=== PATIENT | female | born 1945 | race Caucasian/White ===

== ENCOUNTER → 2018-11-22 14:26 | Outpatient (CLI) | payer MEDICARE, OTHER, SELFPAY ==
[2018-11-22 15:31] LABS: Alanine Aminotransferase 42 IU/L (9-52); Albumin 4.7 g/dL (3.5-5.0); Albumin Globulin Ratio 1.7 (1.0-2.8); Alkaline Phosphatase 60 U/L (38-126); Amylase 50 U/L (30-110); Aspartate Aminotransferase 24 IU/L (14-36); Bilirubin Total 0.5 mg/dL (0.2-1.3); Blood Urea Nitrogen 20 mg/dL (7-17); Calcium 9.6 mg/dL (8.4-10.2); Carbon Dioxide 24 mmol/L (22-32); Chloride 104 mmol/L (98-107); Cholesterol 235 mg/dL (140-199); Estimated Glomerular Filt Rate 54.3 mL/min (>60); Globulin 2.8 g/dL (1.7-4.1); Glucose 98 mg/dL (80-110); HDL Cholesterol 50 mg/dL (40-60); HEMOLYSIS < 15 (0-50); LDL Cholesterol Calculated 142 mg/dL (<100); Lipase 115 U/L (23-300); Potassium 4.2 mmol/L (3.4-5.1); Sodium 139 mmol/L (137-145); Total Protein 7.5 g/dL (6.3-8.2); Triglycerides 216 mg/dL (35-150)
[2018-11-22 15:37] LABS: Add Manual Diff / Slide Review NO; Basophils Absolute Auto 100 /uL (0-100); Basophils Percent Auto 0.7 % (0-2); Eosinophils Absolute Auto 200 /uL (0-450); Eosinophils Percent Auto 2.1 % (2-4); Hematocrit 41.2 % (36-46); Hemoglobin 14.5 g/dL (12.0-16.0); Lymphocytes Absolute Auto 1800 /uL (1100-4500); Lymphocytes Percent Auto 24.4 % (25-40); Mean Corpuscular HGB Conc 35.1 % (30-36); Mean Corpuscular Hemoglobin 32.1 PG (26-34); Mean Corpuscular Volume 91.4 fL (80-100); Monocytes Absolute Auto 600 /uL (0-900); Monocytes Percent Auto 8.3 % (3-14); Neutrophils Absolute Auto 4700 /uL (1500-7000); Neutrophils Percent Auto 64.5 % (50-75); Platelet Count 196 X10^3/uL (150-400); Red Cell Distribution Width 13.1 % (11.6-14.8); White Blood Cell Count 7.3 X10^3/uL (4.5-11.0)
== END ==
PROVIDERS: PCP Physician Assistant; Visit Provider Physician Assistant
DX: E78.5 Hyperlipidemia, unspecified (principal); R10.12 Left upper quadrant pain
CPT/HCPCS: 36415; 80053; 80061; 82150; 83690; 85025

== ENCOUNTER → 2018-11-24 10:25 | Outpatient (CLI) | payer MEDICARE, OTHER, SELFPAY ==
--- NOTE | 2018-11-24 | DI.CT.S_ITS ---
PROCEDURE: CT ABDOMEN W CON INDICATIONS: Left upper quadrant pain TECHNIQUE: After the administration of oral and intravenous contrast, 5 mm thick sections acquired from the diaphragms to the iliac crests. 5 mm thick coronal and sagittal reformats were acquired. For radiation dose reduction, the following was used: automated exposure control, adjustment of mA and/or kV according to patient size. COMPARISON: None. FINDINGS: Image quality: Excellent. Lung bases: Lung bases are clear. Heart size is normal. Solid organs: Liver is normal in size and enhancement. Incidental left lobe liver cyst. Gallbladder is surgically absent.. Biliary system is non dilated. Pancreas enhances normally. Spleen is normal in size and enhancement. No adrenal nodules. Kidneys are normal in size, without hydronephrosis. Peritoneum and bowel: Contrast enhanced bowel loops appear normal in caliber. There is diverticulosis involving the right colon and transverse colon. There is no evidence of diverticulitis. No free fluid or air. Nodes and vessels: No retroperitoneal or mesenteric adenopathy by size criteria. Aorta and inferior vena cava are normal in size. Atherosclerotic infrarenal aortic calcifications. There is normal variant anatomy in which the celiac and SMA arise off the aorta as a common trunk, which is widely patent. There is an independent origin of the left gastric artery just above the common origin of the celiac and SMA. Bones: No suspicious bony lesions. No vertebral body compression fractures. Miscellaneous: No ventral hernias. IMPRESSION: 1. There are no findings explaining the patient's left upper quadrant complaints. 2. Remote cholecystectomy. 3. Colonic diverticulosis. 4. Normal variant anatomy as described above. Dictated by: Jb Kelly M.D. on 11/24/2018 at 12:58 Approved by: Jb Kelly M.D. on 11/24/2018 at 13:03
== END ==
PROVIDERS: PCP Physician Assistant; Visit Provider Physician Assistant
DX: R10.12 Left upper quadrant pain (principal); K57.30 Diverticulosis of large intestine without perforation or abscess without bleeding; Z90.49 Acquired absence of other specified parts of digestive tract
CPT/HCPCS: 74160; Q9967

== ENCOUNTER 2019-05-17 06:32 | Emergency (ER) | payer MEDICARE, OTHER, SELFPAY ==
[2019-05-17 06:48] VITALS: BP 159/74; PULSE 62; RESP 18; TEMP 36.7; O2SAT 96
--- NOTE | 2019-05-17 07:13 | ED.EYEPROB ---
HPI - Eye Problem General Chief complaint: Eye Problems Stated complaint: right eye sore, congregation/head pain Time Seen by Provider: 05/17/19 06:33 Source: patient Mode of arrival: ambulatory Limitations: no limitations History of Present Illness HPI Narrative: Patient is 73-year-old female who presents with right eye discomfort right-sided headache. It has been ongoing for the last 4 days. She is very tender on her right congregation area is she says every time she touches it is an extreme pain. She does not typically get headaches. This is very out of the norm for her. At a seems to be getting worse. She is sensitive to light and noise. Her right eye feels like there is something in it and that swollen. She complains of pruritus. She denies any loss of vision. No weakness no numbness no tingling. chief complaint: eye pain Onset (ago): day(s) (4) Location: right eye Related Data Previous Rx's Medication Instructions Recorded polymyxin B sulf-trimethoprim 1 drop EYE-RIGHT Q4HRWA 7 Days #10 05/17/19 [Polytrim] ml Allergies Allergy/AdvReac Type Severity Reaction Status Date / Time Sulfa (Sulfonamide Allergy Verified 05/17/19 07:46 Antibiotics) Review of Systems Review of Systems ROS Unobtainable: All systems reviewed & are unremarkable except as noted in HPI and below Constitutional Denies chills, Denies fever(s), Reports headache(s), Denies lethargy and Denies weakness Eyes Denies blurry vision, Denies exophthalmos, Denies change in vision, Denies diplopia, Denies eye discharge, Denies dry eyes, Reports irritation, Reports itchy eyes, Reports eye pain, Denies seeing flashes and Reports photophobia ENT Ears, Nose, Mouth, and Throat: Denies change in voice, Reports headache(s), Denies neck pain and Denies sore throat Cardiovascular Denies chest pain, Denies irregular heart rhythm, Denies lightheadedness, Denies palpitations, Denies dyspnea, Denies dyspnea on exertion and Denies orthopnea Respiratory Denies cough, Denies dyspnea, Denies dyspnea on exertion and Denies wheezing Gastrointestinal Gastrointestinal: Denies abdominal pain, Denies change in bowel habits, Denies diarrhea, Denies nausea and Denies vomiting Genitourinary Denies hematuria, Denies flank pain, Denies urinary incontinence and Denies urinary urgency Musculoskeletal Denies neck pain Integumentary/Breasts Denies pruritus, Denies erythema, Denies rash and Denies wounds Neurologic Denies confusion, Reports headache(s) and Denies weakness Psychiatric Denies anxiety, Denies confusion, Denies depression, Denies homicidal ideation and Denies suicidal ideation Endocrine Denies palpitations Allergic/Immunologic Reports itchy eyes and Denies wheezing PFSH Social History Smoking Status: Former smoker Social History Smoking Status: Former smoker Exam Initial Vital Signs Initial Vital Signs: Vital Signs Temperature 98.1 F 05/17/19 06:48 Pulse Rate 62 05/17/19 06:48 Respiratory Rate 18 05/17/19 06:48 Blood Pressure 159/74 H 05/17/19 06:48 Pulse Oximetry 96 05/17/19 06:48 Const General: cooperative and well developed Nutritional Appearance: well nourished Orientation: alert, awake, oriented x3 and not confused HENMT Head: temporal artery tenderness (Right side) Eyes General: appearance normal, both eyes and all related structures Visual Reaves: normal visual reaves by confrontation Eyelids: eyelids normal (No stye present) Conjunctivae: conjunctivae normal Sclera: sclerae normal Cornea: corneas normal and fluorescein used (No dye uptake in right eye) Pupils: PERRL EOM: EOM intact bilaterally Direct ophthalmoscopy: normal light reflex Neck Neck: full ROM and no meningeal signs Resp Effort & Inspection: normal respiratory effort, able to speak in complete sentences, no respiratory distress and no use of accessory muscles Auscultation: clear to auscultation bilaterally, no rales, no rhonchi and no wheezes Cardio Rate: regular rate Rhythm: regular rhythm Heart Sounds: no click, no gallops, no murmurs and no rubs Pulses: normal peripheral pulses GI Inspection: normal to inspection Palpation: soft, No guarding and No tender Skin General: no rashes or lesions noted, No jaundice and No petechiae Neuro General: alert, awake and oriented x3 Cranial Nerves: CN's II-XI intact bilaterally Course Orders Ordered: ED Orders 05/17/19 07:28 CT head/brain wo con Stat 05/17/19 07:35 C-Reactive Protein Quant Stat Complete Blood Count AUTO DIFF Stat Comprehensive Metabolic Panel Stat Erythrocyte Sedimentation Rate Stat 05/17/19 09:46 CT head/brain wo con Stat Discontinued Medications Hydrocodone Bitart/Acetaminophen ([place] 5/325) 1 tab PO NOW ONE Stop: 05/17/19 12:23 Last Admin: 05/17/19 12:27 Dose: 1 tab Ketorolac Tromethamine (Toradol) 30 mg IV NOW ONE Stop: 05/17/19 07:23 Last Admin: 05/17/19 07:46 Dose: 30 mg Proparacaine HCl ([place] 0.5% Ophth Allison) 1 drops EYE-BOTH NOW ONE Stop: 05/17/19 08:34 Last Admin: 05/17/19 08:54 Dose: 1 drops Vital Signs - 8 hr 05/17/19 06:48 05/17/19 09:15 05/17/19 11:45 Temperature 98.1 F Pulse Rate 62 75 59 L Respiratory Rate 18 18 15 Blood Pressure 159/74 H Blood Pressure [Left Arm] 147/75 H 143/53 H Pulse Oximetry 96 98 100 MDM - Eye Problem Lab Data Attestation: I reviewed the patient's lab results. Result diagrams: 05/17/19 07:35 05/17/19 07:35 Lab Results 05/17/19 05/17/19 Range/Units 07:35 07:35 WBC 6.4 (4.5-11.0) X10^3/uL RBC 4.55 (4.0-5.2) X10^6/uL Hgb 14.3 (12.0-16.0) g/dL Hct 41.2 (36-46) % MCV 90.5 (80-100) fL MCH 31.4 (26-34) PG MCHC 34.7 (30-36) % RDW 12.9 (11.6-14.8) % Plt Count 169 (150-400) X10^3/uL Neut % (Auto) 80.2 H (50-75) % Lymph % (Auto) 11.1 L (25-40) % [place] % (Auto) 7.1 (3-14) % Eos % (Auto) 1.2 L (2-4) % Baso % (Auto) 0.4 (0-2) % Neut # (Auto) 5100 (4703-7840) /uL Lymph # (Auto) 700 L (0602-4788) /uL [place] # (Auto) 500 (0-900) /uL Eos # (Auto) 100 (0-450) /uL Baso # (Auto) 0 (0-100) /uL ESR 9 (0-20) MM/HR Sodium 140 (137-145) mmol/L Potassium 4.1 (3.4-5.1) mmol/L Chloride 103 (98-107) mmol/L Carbon Dioxide 26 (22-32) mmol/L BUN 17 (7-17) mg/dL Creatinine 0.90 (0.52-1.04) mg/dL Estimated GFR > 60.0 (>60) mL/min BUN/Creatinine Ratio 18.9 (6-22) Glucose 138 H (80-110) mg/dL Calcium 9.3 (8.4-10.2) mg/dL Total Bilirubin 0.8 (0.2-1.3) mg/dL AST 18 (14-36) IU/L ALT 25 (9-52) IU/L Alkaline Phosphatase 53 (38-126) U/L C-Reactive Protein < 0.5 (<1.0) mg/dL Total Protein 7.3 (6.3-8.2) g/dL Albumin 4.4 (3.5-5.0) g/dL Globulin 2.9 (1.7-4.1) g/dL Albumin/Globulin Ratio 1.5 (1.0-2.8) Imaging Data CT scan - head: Radiologist's impression: PROCEDURE: CT HEAD/BRAIN WO CON INDICATIONS: right sided headache out of proportion TECHNIQUE: Noncontrast 4.5 mm thick angled axial sections acquired from the foramen magnum to the vertex, with coronal and sagittal reformats. For radiation dose reduction, the following was used: automated exposure control, adjustment of mA and/or kV according to patient size. COMPARISON: None. FINDINGS: Image quality: Excellent. CSF spaces: Basal cisterns are patent. No extra-axial fluid collections. The ventricles are symmetric in size and shape. Brain: No intracranial bleeds or masses. There is cerebral volume loss for age, with resultant ventricular and sulcal prominence. There are periventricular and deep white matter chronic small vessel ischemic changes. There is intracranial internal carotid artery atherosclerosis. Skull and face: Calvarium and visualized facial bones appear intact, without suspicious lesions. Sinuses: Visualized sinuses and mastoids are clear. IMPRESSION: Punctate right frontal hyperdense focus, statistically representing small calcification. However technically inadequate since no prior comparison studies, cannot entirely exclude petechial hemorrhage. Depending on level of clinical suspicion, repeat noncontrast CT could be performed in 6 hours to document stability. Otherwise, no acute intracranial process. Dictated by: Juan Cueva M.D. on 05/17/2019 at 8:[address] 2: Radiologist's impression: PROCEDURE: CT HEAD/BRAIN WO CON INDICATIONS: ? bleed vs calcification TECHNIQUE: Noncontrast 4.5 mm thick angled axial sections acquired from the foramen magnum to the vertex, with coronal and sagittal reformats. For radiation dose reduction, the following was used: automated exposure control, adjustment of mA and/or kV according to patient size. COMPARISON: [facility], CT, CT HEAD/BRAIN WO CON, 05/17/2019, 7:24. FINDINGS: Image quality: Excellent. CSF spaces: Basal cisterns are patent. No extra-axial fluid collections. The ventricles are symmetric in size and shape. Brain: No intracranial bleeds or masses. There is cerebral volume loss for age, with resultant ventricular and sulcal prominence. There are periventricular and deep white matter chronic small vessel ischemic changes. Punctate anterior right frontal sulcal calcification is stable compared to prior examination. There is intracranial internal carotid artery atherosclerosis. Skull and face: Calvarium and visualized facial bones appear intact, without suspicious lesions. Sinuses: Visualized sinuses and mastoids are clear. IMPRESSION: No acute intracranial disease process. Dictated by: Indu Luis MD, PhD on 05/17/2019 at 11:47 MDM Narrative Medical decision making narrative: Patient's inflammatory markers for ESR and CRP are negative. At this time I do not think temporal arteritis is present. Head CT does show likely calcification however questionable intracranial hemorrhage. Patient's pain is significantly improved after Toradol. Questionable bleed versus calcification on head CT. Based on patient's abnormal headache in severe pain doc with patient and about repeating head CT. They agree to wait. Head CT is negative. She continues to have some of pain. She is given 1 [place] to help with the pain she does not want any addictive medicine to take home. The recommend Tylenol and ibuprofen as needed Discharge Plan Departure Patient Disposition: Home Clinical Impression: Headache Qualifiers: Headache type: unspecified Headache chronicity pattern: acute headache Intractability: not intractable Qualified Code(s): R51 - Headache Conjunctivitis Qualifiers: Conjunctivitis type: acute Acute conjunctivitis type: unspecified Laterality: right Qualified Code(s): H10.31 - Unspecified acute conjunctivitis, right eye Instructions: Conjunctivitis, DI for Headache Activity Restrictions/Additional Instructions: *You have been diagnosed with headache, conjunctivae *What to do: CT scans today are reassuring no sign of bleeding. *Continue to take medications as directed Poly trim eye drops in right eye every 4 hours while awake. Tylenol 650 mg every 4-6 hours if needed for mild pain Ibuprofen 600 mg every 6-8 hours if needed for mild pain *Follow up with your primary care provider in 2-3 days *Return to ER if you should have visual loss, weakness, or any new, worsening or concerning symptoms Prescriptions: New polymyxin B sulf-trimethoprim [Polytrim] 10,000 unit- 1 mg/mL drops 1 drop EYE-RIGHT Q4HRWA 7 Days Qty: 10 RF: 0 Referrals: Lorie Sanches PA-C [Primary Care Provider] -
--- NOTE | 2019-05-17 07:28 | DI.CT.S_ITS ---
PROCEDURE: CT HEAD/BRAIN WO CON INDICATIONS: right sided headache out of proportion TECHNIQUE: Noncontrast 4.5 mm thick angled axial sections acquired from the foramen magnum to the vertex, with coronal and sagittal reformats. For radiation dose reduction, the following was used: automated exposure control, adjustment of mA and/or kV according to patient size. COMPARISON: None. FINDINGS: Image quality: Excellent. CSF spaces: Basal cisterns are patent. No extra-axial fluid collections. The ventricles are symmetric in size and shape. Brain: No intracranial bleeds or masses. There is cerebral volume loss for age, with resultant ventricular and sulcal prominence. There are periventricular and deep white matter chronic small vessel ischemic changes. There is intracranial internal carotid artery atherosclerosis. Skull and face: Calvarium and visualized facial bones appear intact, without suspicious lesions. Sinuses: Visualized sinuses and mastoids are clear. IMPRESSION: Punctate right frontal hyperdense focus, statistically representing small calcification. However technically inadequate since no prior comparison studies, cannot entirely exclude petechial hemorrhage. Depending on level of clinical suspicion, repeat noncontrast CT could be performed in 6 hours to document stability. Otherwise, no acute intracranial process. Dictated by: Juan Cueva M.D. on 05/17/2019 at 8:33 Approved by: Juan Cueva M.D. on 05/17/2019 at 8:38
[2019-05-17] MEDS: KETOROLAC 60 MG/2 ML VIAL 30 MG IV (07:46)
[2019-05-17 07:48] LABS: Add Manual Diff / Slide Review NO; Basophils Absolute Auto 0 /uL (0-100); Basophils Percent Auto 0.4 % (0-2); Eosinophils Absolute Auto 100 /uL (0-450); Eosinophils Percent Auto 1.2 % (2-4); Hematocrit 41.2 % (36-46); Hemoglobin 14.3 g/dL (12.0-16.0); Lymphocytes Absolute Auto 700 /uL (1100-4500); Lymphocytes Percent Auto 11.1 % (25-40); Mean Corpuscular HGB Conc 34.7 % (30-36); Mean Corpuscular Hemoglobin 31.4 PG (26-34); Mean Corpuscular Volume 90.5 fL (80-100); Monocytes Absolute Auto 500 /uL (0-900); Monocytes Percent Auto 7.1 % (3-14); Neutrophils Absolute Auto 5100 /uL (1500-7000); Neutrophils Percent Auto 80.2 % (50-75); Platelet Count 169 X10^3/uL (150-400); Red Blood Cell Count 4.55 X10^6/uL (4.0-5.2); Red Cell Distribution Width 12.9 % (11.6-14.8); White Blood Cell Count 6.4 X10^3/uL (4.5-11.0)
[2019-05-17 08:00] LABS: Alanine Aminotransferase 25 IU/L (9-52); Albumin 4.4 g/dL (3.5-5.0); Albumin Globulin Ratio 1.5 (1.0-2.8); Alkaline Phosphatase 53 U/L (38-126); Aspartate Aminotransferase 18 IU/L (14-36); BUN Creatinine Ratio 18.9 (6-22); Bilirubin Total 0.8 mg/dL (0.2-1.3); Blood Urea Nitrogen 17 mg/dL (7-17); C-Reactive Protein Quant < 0.5 mg/dL (<1.0); Calcium 9.3 mg/dL (8.4-10.2); Carbon Dioxide 26 mmol/L (22-32); Chloride 103 mmol/L (98-107); Estimated Glomerular Filt Rate > 60.0 mL/min (>60); Globulin 2.9 g/dL (1.7-4.1); Glucose 138 mg/dL (80-110); HEMOLYSIS < 15 (0-50); Potassium 4.1 mmol/L (3.4-5.1); Sodium 140 mmol/L (137-145); Total Protein 7.3 g/dL (6.3-8.2)
[2019-05-17 08:07] LABS: Erythrocyte Sedimentation Rate 9 MM/HR (0-20)
[2019-05-17] MEDS: PROPARACAINE 0.5% OPHTH SOL 1 DROPS EYE-BOTH (08:54)
[2019-05-17 09:15] VITALS: BP 147/75; PULSE 75; RESP 18; O2SAT 98
--- NOTE | 2019-05-17 09:46 | DI.CT.S_ITS ---
PROCEDURE: CT HEAD/BRAIN WO CON INDICATIONS: ? bleed vs calcification TECHNIQUE: Noncontrast 4.5 mm thick angled axial sections acquired from the foramen magnum to the vertex, with coronal and sagittal reformats. For radiation dose reduction, the following was used: automated exposure control, adjustment of mA and/or kV according to patient size. COMPARISON: [facility], CT, CT HEAD/BRAIN WO CON, 05/17/2019, 7:24. FINDINGS: Image quality: Excellent. CSF spaces: Basal cisterns are patent. No extra-axial fluid collections. The ventricles are symmetric in size and shape. Brain: No intracranial bleeds or masses. There is cerebral volume loss for age, with resultant ventricular and sulcal prominence. There are periventricular and deep white matter chronic small vessel ischemic changes. Punctate anterior right frontal sulcal calcification is stable compared to prior examination. There is intracranial internal carotid artery atherosclerosis. Skull and face: Calvarium and visualized facial bones appear intact, without suspicious lesions. Sinuses: Visualized sinuses and mastoids are clear. IMPRESSION: No acute intracranial disease process. Dictated by: Indu Luis MD, PhD on 05/17/2019 at 11:47 Approved by: Indu Luis MD, PhD on 05/17/2019 at 11:49
[2019-05-17 11:45] VITALS: BP 143/53; PULSE 59; RESP 15; O2SAT 100
[2019-05-17] MEDS: HYDROCODONE/ACET 5/325 TABLET 1 TAB PO (12:27)
[2019-05-17 13:24] VITALS: BP 140/78; PULSE 70; RESP 18; O2SAT 98
== END 2019-05-17 13:25 | disposition home or self-care (01) ==
PROVIDERS: Emergency Provider Emergency Medicine; PCP Physician Assistant
DX: R51 Headache (principal); H10.31 Unspecified acute conjunctivitis, right eye
CPT/HCPCS: 36591; 70450; 80053; 85025; 85651; 86140; 96374; 99283; 99284; J1885

== ENCOUNTER 2019-05-19 07:21 | Emergency (ER) | payer MEDICARE, OTHER, SELFPAY ==
--- NOTE | 2019-05-19 07:24 | ED.HA ---
HPI - Headache General Chief Complaint: Headache Stated Complaint: extreme headache right side Time Seen by Provider: 05/19/19 07:35 Source: patient and old records reviewed Mode of arrival: ambulatory Limitations: no limitations History of Present Illness HPI Narrative: This is a 73-year-old female comes in with complaint of headache on the right side as well as a little bit of swelling of her right eyelid and pain in the eye. Patient states it started Wednesday 5 days ago. She was seen here on the had head CT as well as lab work including ESR and CRP which were negative. There is a question of a punctate density on the initial CT so it was repeated with no change noted on the . Patient has been trying ibuprofen and Tylenol as well as polymyxin trimethoprim drops without any improvement. She states that the headache is worse kind of over the buddhism, a radiates to the back of the scalp as well as starting to radiate down the side of the face and towards the mandible. Patient states that her eyelid has been a little bit swollen slightly reddish but not really significantly so and has not seeming to progress since it initially started. She also has noted that her eye seems a little bit more injected. She denies any change of vision. She denies any upper respiratory symptoms, no discharge or crusting. She has not noticed any rash or skin changes on her scalp or face. Patient has not had increasing pain with movement of her eye. She denies any chest pain, shortness of breath, no nausea or vomiting or other GI or urinary symptoms. She takes propranolol for essential tremor. She used to wear contacts but has not worn them for about a year and a half adjust uses glasses. She has not had any cataracts or interventions on her eye. Related Data Home Medications Medication Instructions Recorded Confirmed propranolol 20 mg PO BID 05/19/19 05/19/19 Previous Rx's Medication Instructions Recorded polymyxin B sulf-trimethoprim 1 drop EYE-RIGHT Q4HRWA 7 Days #10 05/17/19 [Polytrim] ml hydrocodone-acetaminophen [[place]] 1 tab PO Q6H PRN #10 tab 05/19/19 valacyclovir 1,000 mg PO TID 7 Days #21 tab 05/19/19 Allergies Allergy/AdvReac Type Severity Reaction Status Date / Time Sulfa (Sulfonamide Allergy Verified 05/19/19 08:03 Antibiotics) Review of Systems Review of Systems ROS Unobtainable: All systems reviewed & are unremarkable except as noted in HPI and below Constitutional Denies chills, Denies fever(s), Denies lethargy and Denies weakness Eyes Denies blurry vision, Denies change in vision, Denies diplopia, Reports irritation, Reports eye pain, Reports requires corrective lenses (uses glasses only), Reports photophobia and Reports other (redness, mild swelling eye lids on right) ENT Ears, Nose, Mouth, and Throat: Reports as per HPI and Denies nasal congestion Cardiovascular Denies chest pain and Denies dyspnea Respiratory Denies dyspnea Gastrointestinal Gastrointestinal: Denies abdominal pain, Denies change in bowel habits, Denies diarrhea, Denies nausea and Denies vomiting Genitourinary Denies urinary frequency, Denies dysuria and Denies urinary urgency Integumentary/Breasts Reports rash (ankle) Neurologic Denies weakness [facility] Medical History (Updated 05/19/19 @ 09:55 by Rosana Segura DO) Essential tremor (Chronic) Surgical History (Updated 05/19/19 @ 08:13 by Rosana Segura DO) Hx of cholecystectomy (Chronic) S/P appendectomy (Chronic) Social History (Updated 05/19/19 @ 08:14 by Rosana Segura DO) Smoking Status: Former smoker alcohol intake: current substance use type: does not use Social History (Updated 05/19/19 @ 08:14 by Rosana Segura DO) Smoking Status: Former smoker alcohol intake: current substance use type: does not use Exam Narrative Exam Narrative: GEN: well nourished, well appearing female, alert and oriented x 3, patient appears to be in mild distress. HEENT: Atraumatic, pupils are equal round reactive to light, extraocular movements are intact, nares are clear, TMs are clear with no fluid, there is no conjunctival pallor. Throat is clear without any exudates, erythema, tonsillar enlargement or uvular deviation Visual acuity: right [20/30], left [20/25] with correction (glasses). IOP: Right 21 mm Hg, Left 21 mm Hg General: no globe trauma Eyelids: normal inspection on left, right lid is slightly swollen with very mild erythema, patient does have a little swelling over the edge of the upper eyelid and extending periorbitally, No erthema appreciated other than along the lid margins, eyelids everted for exam on right. Conjunctiva/Sclera: normal inspection on left, slightly injected on right Corneas: normal inspection, examined with fluroscein on right, patient has small punctate uptake on the right sclera, cornea is spared except for the 11 o'clock position has some punctate spots 3-4 on the edge of the cornea, no dendritic lesions noted. EOM: intact, no palsy/entrapment Pupils: PERRL, normal accomadation, pupil normal Anterior Chambers: normal inspection, no hypema Posterior: normal fundoscopic b/l although difficult evaluate pupils are constricted. HEART: Regular rate and rhythm without murmur, clicks, rubs. No carotid bruits, pulses are equal in upper and lower extremities LUNGS:Lungs clear to auscultation, no wheezes, rales, crackles, chest moves symmetrically ABD:bowel sounds normal, soft, non-tender, no guarding, rebound, rigidity, no masses noted, no hepatosplenomegaly MSCL: Full range of motion, normal gait NEURO:CN 2-12 intact, sensation normal Initial Vital Signs Initial Vital Signs: Vital Signs Temperature 98.1 F 05/19/19 07:30 Pulse Rate 64 05/19/19 07:30 Respiratory Rate 20 05/19/19 07:30 Blood Pressure 146/71 H 05/19/19 07:30 Pulse Oximetry 98 05/19/19 07:30 Course Orders Ordered: Discontinued Medications Hydrocodone Bitart/Acetaminophen ([place] 5/325) 1 tab PO NOW ONE Stop: 05/19/19 10:29 Last Admin: 05/19/19 10:34 Dose: 1 tab Ketorolac Tromethamine (Toradol) 15 mg IV NOW ONE Stop: 05/19/19 08:10 Last Admin: 05/19/19 08:16 Dose: 15 mg Proparacaine HCl (Parcaine 0.5% Ophth Allison) 1 drops EYE-RIGHT NOW ONE Stop: 05/19/19 07:53 Last Admin: 05/19/19 07:56 Dose: 1 drops Vital Signs - 8 hr 05/19/19 10:50 05/19/19 11:00 Pulse Rate 48 L 54 L Respiratory Rate 16 16 Blood Pressure 139/77 Blood Pressure [Left Arm] 146/59 H Pulse Oximetry 98 97 MDM - Headache Lab Data Attestation: I reviewed the patient's lab results. Result diagrams: 05/19/19 07:25 05/19/19 07:25 Lab Results 05/19/19 05/19/19 Range/Units 07:25 07:25 WBC 4.8 (4.5-11.0) X10^3/uL RBC 4.38 (4.0-5.2) X10^6/uL Hgb 14.1 (12.0-16.0) g/dL Hct 39.5 (36-46) % MCV 90.2 (80-100) fL MCH 32.1 (26-34) PG MCHC 35.6 (30-36) % RDW 13.0 (11.6-14.8) % Plt Count 133 L (150-400) X10^3/uL Neut % (Auto) 76.9 H (50-75) % Lymph % (Auto) 10.3 L (25-40) % [place] % (Auto) 10.9 (3-14) % Eos % (Auto) 1.5 L (2-4) % Baso % (Auto) 0.4 (0-2) % Neut # (Auto) 3700 (7742-8095) /uL Lymph # (Auto) 500 L (3407-7876) /uL [place] # (Auto) 500 (0-900) /uL Eos # (Auto) 100 (0-450) /uL Baso # (Auto) 0 (0-100) /uL ESR 14 (0-20) MM/HR Sodium 138 (137-145) mmol/L Potassium 3.9 (3.4-5.1) mmol/L Chloride 104 (98-107) mmol/L Carbon Dioxide 23 (22-32) mmol/L BUN 14 (7-17) mg/dL Creatinine 1.00 (0.52-1.04) mg/dL Estimated GFR 54.3 L (>60) mL/min BUN/Creatinine Ratio 14.0 (6-22) Glucose 148 H (80-110) mg/dL Calcium 9.6 (8.4-10.2) mg/dL C-Reactive Protein 0.6 (<1.0) mg/dL Imaging Data FAcial bones CT: Radiologist's impression: [address] [address] [address] Scan Report Signed Patient: Rafaela Power JMR#: [id number] : 5Acct:[id number] Age/Sex: 73 / FDate of Service: 05/19/19 Loc: ED Accession Number: [id number] Procedure: CT facial bones wo con Ordering Provider: Rosana Segura D.O. PROCEDURE: CT FACIAL BONES WO CON INDICATIONS: pain scalp, temporal, swelling RIGHT eyelid TECHNIQUE: Noncontrast 2.5 mm thick axial images acquired from the mandible through the frontal sinuses, with coronal and sagittal reformatting. For radiation dose reduction, the following was used: automated exposure control, adjustment of mA and/or kV according to patient size. COMPARISON: None. FINDINGS: Image quality: Excellent. Bones and teeth: Orbital mao are intact. Sinus mao show no fracture or deformity. Nasal bones and septum are intact. Visualized portions of the mandible demonstrate no fractures or subluxation. Zygomatic arches are intact. Pterygoid plates are intact. Visualized portions of the skull base and auditory canals are intact. Sinuses: Paranasal sinuses are aerated, without fluid levels, mucosal thickening, or mucoceles. Mastoid air cells are aerated. Soft tissues: Mild right pre-septal, periorbital facial soft tissue swelling. No enlarged lymph nodes. No soft tissue lacerations or debris. Vascular: Visualized vascular structures appear normal in the absence of contrast. Bony vascular foramina and canals are intact. IMPRESSION: 1. No fracture. 2. Mild right periorbital facial soft tissue swelling. Dictated by: Indu Luis MD, PhD on 05/19/2019 at 9:42 Approved by: Indu Luis MD, PhD on 05/19/2019 at 9:46 [facility] Narrative Medical decision making narrative: Patient's headache has been present since Wednesday, she had CT x2 the other day for possible punctate hyperdensity without any change. Patient has no significant tenderness on palpation but is most uncomfortable over the right temporal area. She also does appear to have little bit of swelling around the eye with some very mild erythema along the edges of the lids and possibly a hordeolum or chalazion that is resolving. Patient also has some slight injection and has a little bit of uptake of the sclera. Patient's ESR and CRP were negative on the although this is still in the differential. Repeating CRP and ESR today. Also discussed with patient was concern for possible very early shingles although noted dried lesions or rash has appeared over the last several days, possibly scleritis or iritis. Patient initial intra-ocular pressure was elevated but on re-evaluation was 21 bilaterally and patient was blinking excessively on the 1st evaluation so was likely falsely elevated. Patient has been on trimethoprim and without excessive tearing or discharge making conjunctivitis less likely. Patient Preseptal or periorbital cellulitis is a possibility although patient's swelling has not progressed over the last several days and has stayed stable. Discussed with Ophthalmology, Discharge Plan Departure Patient Disposition: Home Clinical Impression: Headache, Periorbital swelling Discharge Date/Time: 05/19/19 11:00 Interventions: ED Discharge Assessment Last Done: 05/19/19 11:00 Activity Restrictions/Additional Instructions: Go directly to the ophthalmology office to be evaluated. Start medications as directed, unless Ophthalmology changes your care plan. May return to the emergency department at any time particularly if the having sudden vision changes, fevers greater than 100.4 F, worsening symptoms, rapidly increasing pain, lightheadedness, passing out, persistent vomiting, new weakness numbness or difficulty with speech or other new or concerning symptoms. Prescriptions: New valacyclovir 1 gram tablet 1,000 mg PO TID 7 Days Qty: 21 RF: 0 hydrocodone-acetaminophen [[place]] 5-325 mg tablet 1 tab PO Q6H PRN (Reason: pain) Qty: 10 RF: 0 No Action propranolol 20 mg tablet 20 mg PO BID RF: 0 polymyxin B sulf-trimethoprim [Polytrim] 10,000 unit- 1 mg/mL drops 1 drop EYE-RIGHT Q4HRWA 7 Days Qty: 10 RF: 0 Referrals: Lorie Sanches PA-C [Primary Care Provider] -
--- NOTE | 2019-05-19 07:27 | ED_ITS ---
HPI - Headache General Chief Complaint: Headache Stated Complaint: extreme headache right side Time Seen by Provider: 05/19/19 07:35 Source: patient and old records reviewed Mode of arrival: ambulatory Limitations: no limitations History of Present Illness HPI Narrative: This is a 73-year-old female comes in with complaint of headache on the right side as well as a little bit of swelling of her right eyelid and pa in in the eye. Patient states it started Wednesday 5 days ago. She was seen here on the had head CT as well as lab work including ESR and CRP which were negative. There is a question of a punctate density on the initial CT so it was repeated with no change noted on the . Patient has been trying ibuprofen and Tylenol as well as polymyxin trimethoprim drops without any improvement. She states that the headache is worse kind of over the judaism, a radiates to the back of the scalp as well as starting to radiate down the side of the face and towards the mandible. Patient states that her eyelid has been a little bit swollen slightly reddish but not really significantly so and has not seeming to progress since it initially started. She also has noted that her eye seems a little bit more injected. She denies any change of vision. She denies any upper respiratory symptoms, no discharge or crusting. She has not noticed any rash or skin changes on her scalp or face. Patient has not had increasing pain with movement of her eye. She denies any chest pain, shortness of breath, no nausea or vomiting or other GI or urinary symptoms. She takes propranolol for essential tremor. She used to wear contacts but has not worn them for about a year and a half adjust uses glasses. She has not had any cataracts or interventions on her eye. Related Data Home Medications Medication Instructions Recorded Confirmed propranolol 20 mg PO BID 05/19/19 05/19/19 Previous Rx's Medication Instructions Recorded polymyxin B sulf-trimethoprim 1 drop EYE-RIGHT Q4HRWA 7 Days #10 05/17/19 [Polytrim] ml hydrocodone-acetaminophen [[place]] 1 tab PO Q6H PRN #10 tab 05/19/19 valacyclovir 1,000 mg PO TID 7 Days #21 tab 05/19/19 Allergies Allergy/AdvReac Type Severity Reaction Status Date / Time Sulfa (Sulfonamide Allergy Verified 05/19/19 08:03 Antibiotics) Review of Systems Review of Systems ROS Unobtainable: All systems reviewed & are unremarkable except as noted in HPI and below Constitutional Denies chills, Denies fever(s), Denies lethargy and Denies weakness Eyes Denies blurry vision, Denies change in vision, Denies diplopia, Reports irritation, Reports eye pain, Reports requires corrective lenses (uses glasses only), Reports photophobia and Reports other (redness, mild swelling eye lids on right) ENT Ears, Nose, Mouth, and Throat: Reports as per HPI and Denies nasal congestion Cardiovascular Denies chest pain and Denies dyspnea Respiratory Denies dyspnea Gastrointestinal Gastrointestinal: Denies abdominal pain, Denies change in bowel habits, Denies diarrhea, Denies nausea and Denies vomiting Genitourinary Denies urinary frequency, Denies dysuria and Denies urinary urgency Integumentary/Breasts Reports rash (ankle) Neurologic Denies weakness [facility] Medical History (Updated 05/19/19 @ 09:55 by Rosana Segura DO) Essential tremor (Chronic) Surgical History (Updated 05/19/19 @ 08:13 by Rosana Segura DO) Hx of cholecystectomy (Chronic) S/P appendectomy (Chronic) Social History (Updated 05/19/19 @ 08:14 by Rosana Segura DO) Smoking Status: Former smoker alcohol intake: current substance use type: does not use Social History (Updated 05/19/19 @ 08:14 by Rosana Segura DO) Smoking Status: Former smoker alcohol intake: current substance use type: does not use Exam Narrative Exam Narrative: GEN: well nourished, well appearing female, alert and oriented x 3, patient appears to be in mild distress. HEENT: Atraumatic, pupils are equal round reactive to light, extraocular movements are intact, nares are clear, TMs are clear with no fluid, there is no conjunctival pallor. Throat is clear without any exudates, erythema, tonsillar enlargement or uvular deviation Visual acuity: right [20/30], left [20/25] with correction (glasses). IOP: Right 21 mm Hg, Left 21 mm Hg General: no globe trauma Eyelids: normal inspection on left, right lid is slightly swollen with very mild erythema, patient does have a little swelling over the edge of the upper eyelid and extending periorbitally, No erthema appreciated other than along the lid margins, eyelids everted for exam on right. Conjunctiva/Sclera: normal inspection on left, slightly injected on right Corneas: normal inspection, examined with fluroscein on right, patient has small punctate uptake on the right sclera, cornea is spared except for the 11 o'clock position has some punctate spots 3-4 on the edge of the cornea, no dendritic lesions noted. EOM: intact, no palsy/entrapment Pupils: PERRL, normal accomadation, pupil normal Anterior Chambers: normal inspection, no hypema Posterior: normal fundoscopic b/l although difficult evaluate pupils are constricted. HEART: Regular rate and rhythm without murmur, clicks, rubs. No carotid bruits, pulses are equal in upper and lower extremities LUNGS:Lungs clear to auscultation, no wheezes, rales, crackles, chest moves symm etrically ABD:bowel sounds normal, soft, non-tender, no guarding, rebound, rigidity, no masses noted, no hepatosplenomegaly MSCL: Full range of motion, normal gait NEURO:CN 2-12 intact, sensation normal Initial Vital Signs Initial Vital Signs: Vital Signs Temperature 98.1 F 05/19/19 07:30 Pulse Rate 64 05/19/19 07:30 Respiratory Rate 20 05/19/19 07:30 Blood Pressure 146/71 H 05/19/19 07:30 Pulse Oximetry 98 05/19/19 07:30 Course Orders Ordered: Discontinued Medications Hydrocodone Bitart/Acetaminophen ([place] 5/325) 1 tab PO NOW ONE Stop: 05/19/19 10:29 Last Admin: 05/19/19 10:34 Dose: 1 tab Ketorolac Tromethamine (Toradol) 15 mg IV NOW ONE Stop: 05/19/19 08:10 Last Admin: 05/19/19 08:16 Dose: 15 mg Proparacaine HCl (Parcaine 0.5% Ophth Allison) 1 drops EYE-RIGHT NOW ONE Stop: 05/19/19 07:53 Last Admin: 05/19/19 07:56 Dose: 1 drops Vital Signs - 8 hr 05/19/19 10:50 05/19/19 11:00 Pulse Rate 48 L 54 L Respiratory Rate 16 16 Blood Pressure 139/77 Blood Pressure [Left Arm] 146/59 H Pulse Oximetry 98 97 MDM - Headache Lab Data Attestation: I reviewed the patient's lab results. Result diagrams: 05/19/19 07:25 05/19/19 07:25 Lab Results 05/19/19 05/19/19 Range/Units 07:25 07:25 WBC 4.8 (4.5-11.0) X10^3/uL RBC 4.38 (4.0-5.2) X10^6/uL Hgb 14.1 (12.0-16.0) g/dL Hct 39.5 (36-46) % MCV 90.2 (80-100) fL MCH 32.1 (26-34) PG MCHC 35.6 (30-36) % RDW 13.0 (11.6-14.8) % Plt Count 133 L (150-400) X10^3/uL Neut % (Auto) 76.9 H (50-75) % Lymph % (Auto) 10.3 L (25-40) % [place] % (Auto) 10.9 (3-14) % Eos % (Auto) 1.5 L (2-4) % Baso % (Auto) 0.4 (0-2) % Neut # (Auto) 3700 (1423-5884) /uL Lymph # (Auto) 500 L (1396-2139) /uL [place] # (Auto) 500 (0-900) /uL Eos # (Auto) 100 (0-450) /uL Baso # (Auto) 0 (0-100) /uL ESR 14 (0-20) MM/HR Sodium 138 (137-145) mmol/L Potassium 3.9 (3.4-5.1) mmol/L Chloride 104 (98-107) mmol/L Carbon Dioxide 23 (22-32) mmol/L BUN 14 (7-17) mg/dL Creatinine 1.00 (0.52-1.04) mg/dL Estimated GFR 54.3 L (>60) mL/min BUN/Creatinine Ratio 14.0 (6-22) Glucose 148 H (80-110) mg/dL Calcium 9.6 (8.4-10.2) mg/dL C-Reactive Protein 0.6 (<1.0) mg/dL Imaging Data FAcial bones CT: Radiologist's impression: [address] [address] [address] Scan Report Signed Patient: Rafalea Power JMR#: [id number] : 5Acct:[id number] Age/Sex: 73 / FDate of Service: 05/19/19 Loc: ED Accession Number: [id number] Procedure: CT facial bones wo con Ordering Provider: Rosana Segura D.O. PROCEDURE: CT FACIAL BONES WO CON INDICATIONS: pain scalp, temporal, swelling RIGHT eyelid TECHNIQUE: Noncontrast 2.5 mm thick axial images acquired from the mandible through the frontal sinuses, with coronal and sagittal reformatting. For radiation dose reduction, the following was used: automated exposure control, adjustment of mA and/or kV according to patient size. COMPARISON: None. FINDINGS: Image quality: Excellent. Bones and teeth: Orbital mao are intact. Sinus mao show no fracture or deformity. Nasal bones and septum are intact. Visualized portions of the mandible demonstrate no fractures or subluxation. Zygomatic arches are intact. Pterygoid plates are intact. Visualized portions of the skull base and auditory canals are intact. Sinuses: Paranasal sinuses are aerated, without fluid levels, mucosal thickening, or mucoceles. Mastoid air cells are aerated. Soft tissues: Mild right pre-septal, periorbital facial soft tissue swelling. No enlarged lymph nodes. No soft tissue lacerations or debris. Vascular: Visualized vascular structures appear normal in the absence of contrast. Bony vascular foramina and canals are intact. IMPRESSION: 1. No fracture. 2. Mild right periorbital facial soft tissue swelling. Dictated by: Indu Luis MD, PhD on 05/19/2019 at 9:42 Approved by: Indu Luis MD, PhD on 05/19/2019 at 9:46 [facility] [place] Narrative Medical decision making narrative: Patient's headache has been present since Wednesday, she had CT x2 the other day for possible punctate hyperdensity without any change. Patient has no significant tenderness on palpation but is most uncomfortable over the right temporal area. She also does appear to have little bit of swelling around the eye with some very mild erythema along the edges of the lids and possibly a hordeolum or chalazion that is resolving. Patient also has some slight injection and has a little bit of uptake of the sclera. Patient's ESR and CRP were negative on the although this is still in the differential. Repeating CRP and ESR today. Also discussed with patient was concern for possible very early shingles although noted dried lesions or rash has appeared over the last several days, possibly scleritis or iritis. Patient initial intra-ocular pressure was elevated but on re-evaluation was 21 bilaterally and patient was blinking excessively on the 1st evaluation so was likely falsely elevated. Patient has been on trimethoprim and without excessive tearing or discharge making conjunctivitis less likely. Patient Preseptal or periorbital cellulitis is a possibility although patient's swelling has not progressed over the last several days and has stayed stable. Discussed with Ophthalmology, Discharge Plan Departure Patient Disposition: Home Clinical Impression: Headache, Periorbital swelling Discharge Date/Time: 05/19/19 11:00 Interventions: ED Discharge Assessment Last Done: 05/19/19 11:00 Activity Restrictions/Additional Instructions: Go directly to the ophthalmology office to be evaluated. Start medications as directed, unless Ophthalmology changes your care plan. May return to the emergency department at any time particularly if the having sudden vision changes, fevers greater than 100.4 F, worsening symptoms, rapidly increasing pain, lightheadedness, passing out, persistent vomiting, new weakness numbness or difficulty with speech or other new or concerning symptoms. Prescriptions: New valacyclovir 1 gram tablet 1,000 mg PO TID 7 Days Qty: 21 RF: 0 hydrocodone-acetaminophen [[place]] 5-325 mg tablet 1 tab PO Q6H PRN (Reason: pain) Qty: 10 RF: 0 No Action propranolol 20 mg tablet 20 mg PO BID RF: 0 polymyxin B sulf-trimethoprim [Polytrim] 10,000 unit- 1 mg/mL drops 1 drop EYE-RIGHT Q4HRWA 7 Days Qty: 10 RF: 0 Referrals: Lorie Sanches PA-C [Primary Care Provider] -
[2019-05-19 07:30] VITALS: BP 146/71; PULSE 64; RESP 20; TEMP 36.7; O2SAT 98; BMI 28.0
[2019-05-19] MEDS: PROPARACAINE 0.5% OPHTH SOL 1 DROPS EYE-RIGHT (07:56)
[2019-05-19 08:12] LABS: Add Manual Diff / Slide Review NO; Basophils Absolute Auto 0 /uL (0-100); Basophils Percent Auto 0.4 % (0-2); Eosinophils Absolute Auto 100 /uL (0-450); Eosinophils Percent Auto 1.5 % (2-4); Hematocrit 39.5 % (36-46); Hemoglobin 14.1 g/dL (12.0-16.0); Lymphocytes Absolute Auto 500 /uL (1100-4500); Lymphocytes Percent Auto 10.3 % (25-40); Mean Corpuscular HGB Conc 35.6 % (30-36); Mean Corpuscular Hemoglobin 32.1 PG (26-34); Mean Corpuscular Volume 90.2 fL (80-100); Monocytes Absolute Auto 500 /uL (0-900); Monocytes Percent Auto 10.9 % (3-14); Neutrophils Absolute Auto 3700 /uL (1500-7000); Neutrophils Percent Auto 76.9 % (50-75); Platelet Count 133 X10^3/uL (150-400); Red Blood Cell Count 4.38 X10^6/uL (4.0-5.2); White Blood Cell Count 4.8 X10^3/uL (4.5-11.0)
[2019-05-19 08:15] LABS: Sodium 138 mmol/L (137-145)
[2019-05-19] MEDS: KETOROLAC 60 MG/2 ML VIAL 15 MG IV (08:16)
[2019-05-19 08:19] VITALS: BP 154/53; PULSE 52; RESP 15; O2SAT 96
[2019-05-19 08:20] LABS: Blood Urea Nitrogen 14 mg/dL (7-17); C-Reactive Protein Quant 0.6 mg/dL (<1.0); Calcium 9.6 mg/dL (8.4-10.2); Carbon Dioxide 23 mmol/L (22-32); Chloride 104 mmol/L (98-107); Estimated Glomerular Filt Rate 54.3 mL/min (>60); Glucose 148 mg/dL (80-110); HEMOLYSIS 15 (0-50); Potassium 3.9 mmol/L (3.4-5.1)
[2019-05-19 08:30] LABS: Erythrocyte Sedimentation Rate 14 MM/HR (0-20)
--- NOTE | 2019-05-19 09:08 | DI.CT.S_ITS ---
PROCEDURE: CT FACIAL BONES WO CON INDICATIONS: pain scalp, temporal, swelling RIGHT eyelid TECHNIQUE: Noncontrast 2.5 mm thick axial images acquired from the mandible through the frontal sinuses, with coronal and sagittal reformatting. For radiation dose reduction, the following was used: automated exposure control, adjustment of mA and/or kV according to patient size. COMPARISON: None. FINDINGS: Image quality: Excellent. Bones and teeth: Orbital mao are intact. Sinus mao show no fracture or deformity. Nasal bones and septum are intact. Visualized portions of the mandible demonstrate no fractures or subluxation. Zygomatic arches are intact. Pterygoid plates are intact. Visualized portions of the skull base and auditory canals are intact. Sinuses: Paranasal sinuses are aerated, without fluid levels, mucosal thickening, or mucoceles. Mastoid air cells are aerated. Soft tissues: Mild right pre-septal, periorbital facial soft tissue swelling. No enlarged lymph nodes. No soft tissue lacerations or debris. Vascular: Visualized vascular structures appear normal in the absence of contrast. Bony vascular foramina and canals are intact. IMPRESSION: 1. No fracture. 2. Mild right periorbital facial soft tissue swelling. Dictated by: Indu Luis MD, PhD on 05/19/2019 at 9:42 Approved by: Indu Luis MD, PhD on 05/19/2019 at 9:46
[2019-05-19] MEDS: HYDROCODONE/ACET 5/325 TABLET 1 TAB PO (10:34)
[2019-05-19 10:50] VITALS: BP 146/59; PULSE 48; RESP 16; O2SAT 98
[2019-05-19 11:00] VITALS: BP 139/77; PULSE 54; RESP 16; O2SAT 97
== END 2019-05-19 11:00 | disposition home or self-care (01) ==
PROVIDERS: Emergency Provider Emergency Medicine; PCP Physician Assistant
DX: H57.89 Other specified disorders of eye and adnexa (principal); R51 Headache
CPT/HCPCS: 36591; 70486; 80048; 85025; 85651; 86140; 96374; 99283; 99284; J1885

== ENCOUNTER → 2020-03-13 16:07 | Outpatient (CLI) | payer MEDICARE, OTHER, SELFPAY ==
[2020-03-13 17:09] LABS: Erythrocyte Sedimentation Rate 10 MM/HR (0-20)
[2020-03-13 17:27] LABS: C-Reactive Protein Quant < 0.5 mg/dL (<1.0)
== END ==
PROVIDERS: PCP Physician Assistant; Referring Provider Ophthalmology; Visit Provider Ophthalmology
DX: H34.211 Partial retinal artery occlusion, right eye (principal)
CPT/HCPCS: 36415; 85651; 86140

== ENCOUNTER → 2020-05-03 09:03 | Outpatient (CLI) | payer MEDICARE, OTHER, SELFPAY ==
[2020-05-03 10:22] LABS: Alanine Aminotransferase 22 IU/L (<35); Albumin 4.2 g/dL (3.5-5.0); Albumin Globulin Ratio 1.7 (1.0-2.8); Alkaline Phosphatase 57 U/L (38-126); Aspartate Aminotransferase 21 IU/L (14-36); BUN Creatinine Ratio 18.2 (6-22); Bilirubin Total 0.6 mg/dL (0.2-1.3); Blood Urea Nitrogen 18 mg/dL (7-17); Calcium 9.7 mg/dL (8.4-10.2); Carbon Dioxide 23 mmol/L (22-32); Chloride 108 mmol/L (98-107); Cholesterol 200 mg/dL (140-199); Estimated Glomerular Filt Rate 54.8 mL/min (>60); Globulin 2.5 g/dL (1.7-4.1); Glucose 114 mg/dL (80-110); HDL Cholesterol 44 mg/dL (40-60); HEMOLYSIS < 15 (0-50); LDL Cholesterol Calculated 102 mg/dL (<100); Potassium 4.6 mmol/L (3.4-5.1); Sodium 139 mmol/L (137-145); Total Protein 6.7 g/dL (6.3-8.2); Triglycerides 272 mg/dL (35-150)
[2020-05-03 10:49] LABS: TSH w/ Reflex to FT4 2.93 uIU/mL (0.47-4.68)
== END ==
PROVIDERS: PCP Internal Medicine; Referring Provider Internal Medicine; Visit Provider Internal Medicine
DX: G25.0 Essential tremor (principal); I10 Essential (primary) hypertension
CPT/HCPCS: 36415; 80053; 80061; 84443

== ENCOUNTER → 2020-10-22 08:47 | Outpatient (CLI) | payer MEDICARE, OTHER, SELFPAY ==
[2020-10-22] MEDS: COVID-19 VACC #1, MRNA(MOD) 100 MCG/0.5 ML VIAL IM (08:54)
== END ==
PROVIDERS: PCP Internal Medicine; Visit Provider Internal Medicine
DX: Z23 Encounter for immunization (principal)
CPT/HCPCS: 0011A; 91301

== ENCOUNTER → 2020-11-19 08:51 | Outpatient (CLI) | payer MEDICARE, OTHER, SELFPAY ==
[2020-11-19] MEDS: COVID-19 VACC #2, MRNA(MOD) 100 MCG/0.5 ML VIAL IM (09:01)
== END ==
PROVIDERS: PCP Internal Medicine; Visit Provider Internal Medicine
DX: Z23 Encounter for immunization (principal)
CPT/HCPCS: 0012A; 91301

== ENCOUNTER → 2021-07-02 11:28 | Outpatient (CLI) | payer MEDICARE, OTHER, SELFPAY ==
--- NOTE | 2021-07-02 11:30 | DI.RAD.S_ITS ---
PROCEDURE: XR KNEE LT 3V INDICATIONS: Left knee pain TECHNIQUE: 3 views of the knee were acquired. COMPARISON: None. FINDINGS: Bones: No acute fracture. Minimal narrowing of the medial joint space is probably age-appropriate. Calcific densities projecting at the superior pole of the patella could be small loose bodies versus dystrophic calcification potentially reflecting longstanding quadriceps tendinopathy. Soft tissues: No joint effusion. IMPRESSION: Minimal joint degeneration, likely age-appropriate Multiple calcific densities at the superior pole of the patella as above. Dictated by: Juan Cueva M.D. on 07/02/2021 at 11:47 Approved by: Juan Cueva M.D. on 07/02/2021 at 11:49
== END ==
PROVIDERS: PCP Internal Medicine; Referring Provider Nurse Practitioner Family; Visit Provider Nurse Practitioner Family
DX: M25.562 Pain in left knee (principal); M25.862 Other specified joint disorders, left knee
CPT/HCPCS: 73562

== ENCOUNTER → 2021-08-04 08:07 | Outpatient (CLI) | payer MEDICARE, OTHER, SELFPAY ==
[2021-08-04 09:24] LABS: Alanine Aminotransferase 18 IU/L (<35); Albumin 4.1 g/dL (3.5-5.0); Albumin Globulin Ratio 1.6 (1.0-2.8); Alkaline Phosphatase 51 U/L (38-126); Aspartate Aminotransferase 18 IU/L (14-36); BUN Creatinine Ratio 18.9 (6-22); Bilirubin Total 0.6 mg/dL (0.2-1.3); Blood Urea Nitrogen 18 mg/dL (7-17); Calcium 9.4 mg/dL (8.4-10.2); Carbon Dioxide 25 mmol/L (22-32); Chloride 108 mmol/L (98-107); Cholesterol 187 mg/dL (140-199); Estimated Glomerular Filt Rate 57.2 mL/min (>60); Globulin 2.6 g/dL (1.7-4.1); Glucose 125 mg/dL (80-110); HDL Cholesterol 45 mg/dL (40-60); HEMOLYSIS < 15 (0-50); LDL Cholesterol Calculated 107 mg/dL (<100); Potassium 4.7 mmol/L (3.4-5.1); Sodium 141 mmol/L (137-145); Total Protein 6.7 g/dL (6.3-8.2); Triglycerides 176 mg/dL (35-150)
== END ==
PROVIDERS: PCP Internal Medicine; Referring Provider Internal Medicine; Visit Provider Internal Medicine
DX: G25.0 Essential tremor (principal); I10 Essential (primary) hypertension
CPT/HCPCS: 36415; 80053; 80061

== ENCOUNTER → 2021-10-21 12:37 | Outpatient (CLI) | payer MEDICARE, OTHER, SELFPAY ==
--- NOTE | 2021-10-21 | DI.RAD.S_ITS ---
PROCEDURE: XR DEXA AXIAL SKELETON INDICATIONS: OSTEOPENIA COMPARISON: None. FINDINGS: This blank DEXA report has been sent in error by the PACS system. The correct and complete report will be forthcoming in 1-2 days. Thank you for your patience and understanding. Dictated by: Indu Luis MD, PhD on 10/21/2021 at 16:57 Approved by: Indu Luis MD, PhD on 10/21/2021 at 16:57
== END ==
PROVIDERS: PCP Internal Medicine; Referring Provider Internal Medicine; Visit Provider Internal Medicine
DX: M81.0 Age-related osteoporosis without current pathological fracture (principal); Z78.0 Asymptomatic menopausal state; Z87.891 Personal history of nicotine dependence
CPT/HCPCS: 77080

== ENCOUNTER → 2023-05-20 09:23 | Outpatient (CLI) | payer MEDICARE, OTHER, SELFPAY ==
[2023-05-20 10:44] LABS: Add Manual Diff / Slide Review NO; Basophils Absolute Auto 100 /uL (0-100); Basophils Percent Auto 0.9 % (0-2); Eosinophils Absolute Auto 100 /uL (0-450); Eosinophils Percent Auto 1.8 % (2-4); Hematocrit 40.4 % (36-46); Hemoglobin 14.1 g/dL (12.0-16.0); Lymphocytes Absolute Auto 1500 /uL (1100-4500); Lymphocytes Percent Auto 22.6 % (25-40); Mean Corpuscular HGB Conc 34.9 % (30-36); Mean Corpuscular Hemoglobin 32.6 PG (26-34); Mean Corpuscular Volume 93.4 fL (80-100); Monocytes Absolute Auto 600 /uL (0-900); Monocytes Percent Auto 8.7 % (3-14); Neutrophils Absolute Auto 4500 /uL (1500-7000); Platelet Count 191 X10^3/uL (150-400); Red Blood Cell Count 4.32 X10^6/uL (4.0-5.2); Red Cell Distribution Width 13.4 % (11.6-14.8); White Blood Cell Count 6.8 X10^3/uL (4.5-11.0)
[2023-05-20 11:40] LABS: Alanine Aminotransferase 20 IU/L (<35); Albumin 4.2 g/dL (3.5-5.0); Albumin Globulin Ratio 1.7 (1.0-2.8); Alkaline Phosphatase 45 U/L (38-126); Aspartate Aminotransferase 20 IU/L (14-36); BUN Creatinine Ratio 18.3 (6-22); Bilirubin Total 0.7 mg/dL (0.2-1.3); Blood Urea Nitrogen 17 mg/dL (7-17); Calcium 9.5 mg/dL (8.4-10.2); Carbon Dioxide 24 mmol/L (22-32); Chloride 106 mmol/L (98-107); Cholesterol 196 mg/dL (140-199); Estimated Glomerular Filt Rate > 60 mL/min (>60); Globulin 2.5 g/dL (1.7-4.1); Glucose 107 mg/dL (80-110); HDL Cholesterol 53 mg/dL (40-60); HEMOLYSIS < 15 (0-50); LDL Cholesterol Calculated 119 mg/dL (<100); Potassium 4.6 mmol/L (3.4-5.1); Sodium 140 mmol/L (137-145); Total Protein 6.7 g/dL (6.3-8.2); Triglycerides 120 mg/dL (35-150)
[2023-05-20 12:08] LABS: TSH w/ Reflex to FT4 1.89 uIU/mL (0.47-4.68)
== END ==
PROVIDERS: PCP Internal Medicine; Referring Provider Internal Medicine; Visit Provider Internal Medicine
DX: G25.0 Essential tremor (principal); I10 Essential (primary) hypertension
CPT/HCPCS: 36415; 80053; 80061; 84443; 85025

== ENCOUNTER → 2023-10-18 09:35 | Outpatient (CLI) | payer MEDICARE, OTHER, SELFPAY ==
--- NOTE | 2023-10-18 09:39 | DI.RAD.S_ITS ---
PROCEDURE: XR LUMBAR SPINE MIN 4V INDICATIONS: BACK PAIN TECHNIQUE: 5 views of the lumbar spine were acquired, including bilateral oblique views. COMPARISON: None. FINDINGS: Bones: 5 nonrib-bearing vertebrae are present. There is normal bony alignment. No vertebral body compression fractures. No suspicious bony lesions. Multilevel degenerative disc and foraminal narrowing are present most severe at L4-5 and L5-S1. Soft tissues: Overlying bowel gas pattern is normal. No suspicious soft tissue calcifications. Oblique images: No pars defects. IMPRESSION: Degenerative changes are most prominent at L5-S1. Dictated by: Merced Arrington M.D. on 10/18/2023 at 10:57 Approved by: Merced Arrington M.D. on 10/18/2023 at 10:58
== END ==
PROVIDERS: PCP Internal Medicine; Referring Provider Physical Medicine & Rehabilitation; Visit Provider Physical Medicine & Rehabilitation
DX: M47.817 Spondylosis without myelopathy or radiculopathy, lumbosacral region (principal); M54.9 Dorsalgia, unspecified
CPT/HCPCS: 72110

== ENCOUNTER → 2023-10-28 11:34 | Outpatient (CLI) | payer MEDICARE, OTHER, SELFPAY ==
--- NOTE | 2023-10-28 11:35 | DI.MRI.S_ITS ---
PROCEDURE: MR LUMBAR SPINE WO CON INDICATIONS: L5 radiculopathy TECHNIQUE: Noncontrast sagittal T1 spin echo and T2 fast echo, sagittal STIR, and T2 fast spin echo through the lumbar spine. In cases with scoliosis, additional coronal T2 fast spin echo may be performed. COMPARISON: [facility], CR, XR LUMBAR SPINE MIN 4V, 10/18/2023, 9:58. FINDINGS: Image quality: Excellent. Alignment and Curvature: There is normal bony alignment. Bone Marrow: Marrow is of normal overall signal. No acute vertebral body compression fractures. Spinal Cord: Conus medullaris terminates at the L1-L2 level. Visualized cord demonstrates normal signal and size. Paraspinous Soft Tissues: No paravertebral masses. T12-L1: Normal appearance. L1-L2: Normal appearance. L2-L3: The disc height is well-preserved. Loss of disc signal is seen at this level. Mild generalized disc bulge is seen. Mild facet joint hypertrophy is seen. There is mild right-sided and moderate left-sided neural foraminal narrowing. Minimal central canal narrowing is seen. L3-L4: The disc height is well-preserved. Loss of disc signal is seen at this level. Mild to moderate disc bulge is seen, which is slightly eccentric to the right. Mild facet joint hypertrophy is seen. Moderate bilateral neural foraminal narrowing is seen. No central canal narrowing is seen. L4-L5: The disc height is well-preserved. Loss of disc signal is seen at this level. Moderate generalized disc bulge is seen. There is a superimposed central disc protrusion. There is a focal annular fissure seen posteriorly. At least moderate facet hypertrophy is seen. There is moderate to severe bilateral neural foraminal narrowing seen, with an associated a degree of compression seen upon the exiting nerve roots. At least moderate central canal narrowing is seen. L5-S1: The disc height is well-preserved. Loss of disc signal is seen at this level. Moderate generalized disc bulge is seen. There is a superimposed central disc protrusion. At least moderate facet hypertrophy can be seen, right worse than left. Moderate bilateral neural foraminal narrowing is seen. Minimal central canal narrowing is seen. IMPRESSION: Lumbar spine degenerative changes can be seen, which are worst inferiorly. Dictated by: Geovanni Crouch M.D. on 10/28/2023 at 12:17 Approved by: Geovanni Crouch M.D. on 10/28/2023 at 12:19
== END ==
PROVIDERS: PCP Internal Medicine; Referring Provider Physical Medicine & Rehabilitation; Visit Provider Physical Medicine & Rehabilitation
DX: M47.26 Other spondylosis with radiculopathy, lumbar region (principal); M47.27 Other spondylosis with radiculopathy, lumbosacral region
CPT/HCPCS: 72148

== ENCOUNTER → 2024-01-12 09:38 | Outpatient (CLI) | payer MEDICARE, OTHER, SELFPAY | LOC: CAR 09:39 | PROVIDERS: PCP Internal Medicine; Referring Provider Internal Medicine; Visit Provider Internal Medicine | DX: I48.91 Unspecified atrial fibrillation (principal); I48.92 Unspecified atrial flutter | CPT/HCPCS: 93242 ==

== ENCOUNTER 2024-01-26 21:32 | Emergency (ER) | payer MEDICARE, OTHER, SELFPAY ==
[2024-01-26 21:45] VITALS: BP 199/84; PULSE 56; RESP 18; TEMP 36.6; O2SAT 97; BMI 24.8
--- NOTE | 2024-01-26 22:36 | ED.BACK ---
HPI - Back Pain/Injury General Chief Complaint: Back Pain/Injury Stated Complaint: fell in shower, pain Time Seen by Provider: 01/26/24 21:57 Source: patient and family History of Present Illness HPI Narrative: 78-year-old female with history osteoporosis presents for lower back pain. Patient was getting out of the shower 2 days ago when she slipped, falling backwards into the wall and then sliding down to the ground, landing on her bottom. Since then she has had significant lumbar pain that has made it very difficult for her to be mobile. She tried to tough it out at home with [id number] medications but her pain became unbearable and she decided to present for evaluation. Denies bowel or bladder incontinence, denies saddle anesthesia. Reports difficulty ambulating due to pain, denies lower extremity weakness. Related Data Home Medications Medication Instructions Recorded Confirmed Calcium Citrate + Zinc + Mag + Vit 1 cap PO DAILY 04/04/20 01/03/24 D. cholecalciferol (vitamin D3) 50 50 mcg PO DAILY 04/04/20 01/03/24 mcg (2,000 unit) capsule Glucosamine Chondroitin 1 tab PO DAILY 07/25/21 01/03/24 Vitamin B12 1 tab PO .1-2X WEEK 01/03/24 Previous Rx's Medication Instructions Recorded lisinopril 20 mg tablet 20 mg PO DAILY #90 tabs 10/04/23 propranolol 20 mg tablet 20 mg PO DAILY Essential Tremors 10/04/23 #90 tabs gabapentin 300 mg capsule 300 mg PO .COMPLEX #90 caps 10/20/23 oxycodone 5 mg capsule 5 mg PO Q6H PRN pain #14 caps 01/27/24 Allergies Allergy/AdvReac Type Severity Reaction Status Date / Time Sulfa (Sulfonamide Allergy Verified 01/03/24 15:44 Antibiotics) Review of Systems Review of Systems Narrative: See HPI Patient History Medical History Facet arthropathy, lumbar Scoliosis Lumbar radiculopathy Essential hypertension Near sighted Shingles (~2018) Osteoarthritis Osteopenia (~1992) Essential tremor (~1989) Surgical History Anesthesia History of tubal ligation (~1975) Hx of cholecystectomy (~2016) S/P appendectomy (~2012) Family History Father History of heart disease S/P triple vessel bypass Mother Mental health problem Alzheimer's disease Social History Smoking Status: Former smoker alcohol intake: current substance use type: does not use Smoking Status: Former smoker alcohol intake frequency: a few times a month Substance Use Type: does not use Exam Initial Vital Signs Initial Vital Signs: Vital Signs Temperature 97.9 F 01/26/24 21:45 Pulse Rate 56 L 01/26/24 21:45 Respiratory Rate 18 01/26/24 21:45 Blood Pressure 199/84 H 01/26/24 21:45 Pulse Oximetry 97 01/26/24 21:45 Oxygen Delivery Method Room Air 01/26/24 21:45 Const: Awake, alert, no acute distress, nontoxic appearing MSK back: No step-offs, generalized tenderness to palpation over lower thoracic/upper lumbar region Skin: Warm, Dry, intact, no rashes Neuro: AO x3, CN II-XII grossly intact, moves all extremities Course Orders Ordered: ED Orders 01/26/24 22:36 CT lumbar spine wo con Stat Discontinued Medications Diazepam (Diazepam 2 Mg Tablet) 2 mg PO NOW ONE Stop: 01/27/24 00:12 Last Admin: 01/27/24 00:23 Dose: 2 mg Documented By: SHARON Oxycodone HCl (Oxycodone Ir 5 Mg Tablet) 5 mg PO NOW ONE Stop: 01/26/24 22:37 Last Admin: 01/26/24 22:42 Dose: 5 mg Documented By: SHARON Oxycodone/Acetaminophen (Oxycodone/Apap 5/325 Prepack) 1 bottle MISC DIRECTED ONE Stop: 01/27/24 00:15 Last Admin: 01/27/24 00:23 Dose: 1 bottle Documented By: SHARON Vital Signs Vital signs: Vital Signs - 8 hr 01/26/24 21:45 01/27/24 00:38 Temperature 97.9 F Pulse Rate 56 L 62 Respiratory Rate 18 15 Blood Pressure 199/84 H 188/84 H Pulse Oximetry 97 97 Oxygen Delivery Method Room Air Room Air MDM - Back Pain/Injury Differential Diagnosis Differential diagnosis: Likely lumbar radiculopathy, sciatica and strain of lumbar region Imaging Data CT - cervical spine: Radiologist's Impression: PROCEDURE: CT LUMBAR SPINE WO CON INDICATIONS: glf 2 days ago, persistent lumbar pain TECHNIQUE: Noncontrast 3 mm thick sections acquired from the T12 level to the sacrum. Sagittal and coronal reformats were constructed. For radiation dose reduction, the following was used: automated exposure control. COMPARISON: [facility], MR, MR LUMBAR SPINE WO CON, 10/28/2023, 12:01. FINDINGS: Image quality: Excellent. Bones: There is interval 62% compression deformity at L1. No retropulsion. Fracture lucencies are present within the anterior, mid and posterior 3rd of the vertebral body. There is no direct visualized extension to the pedicles. Remaining osseous structures are intact. Scattered multilevel disc bulges, unchanged. Multilevel spinal stenosis is present most severe at L4-5, unchanged. Multilevel foraminal narrowing most severe at L4-5 and to a lesser degree L3-4 and L5-S1 are stable. Soft tissues: No retroperitoneal masses or hematomas. Visualized aorta is normal in caliber. IMPRESSION: 62% compression deformity at L1 appearing acute/subacute without retropulsion. Dictated by: Merced Arrington M.D. on 01/26/2024 at 23:38 Approved by: Merced Arrington M.D. on 01/26/2024 at 23:40 MDM Narrative Medical decision making narrative: Lumbar pain after fall from standing height to the ground. No neurologic deficits. CT scan shows L1 compression fracture deformity acute/subacute in nature. No retropulsion identified. Given that this correlates to patient's area of pain after recent fall this is likely acute. She has Salonpas patches on her back, she was given oxycodone for pain with some improvement. Patient given prescription for pain medications at home, recommended orthopedic spine follow up and a referral was provided. Discharge Plan Departure Patient Disposition: Home Clinical Impression: Compression fracture Instructions: DI for Vertebral Fracture Activity Restrictions/Additional Instructions: Your L1 lumbar vertebra has a 62% compression fracture deformity. This is likely the source of your back pain. Take up to 1000 mg of Tylenol every 6 hours as well as your gabapentin for pain control along with the medications prescribed. You may also take up to 400 mg of ibuprofen every 6-8 hours for pain, however take this with food as this may cause stomach upset and puts you at risk of bleeding. Do not take more than 4000mg of Tylenol daily The pain medication prescribed may cause drowsiness, be careful when taking this medication, do not take this with alcohol or before driving. Please follow up with Orthopedic surgery. Prescriptions: New oxycodone 5 mg capsule 5 mg PO Q6H PRN (Reason: pain) Qty: 14 0RF No Action lisinopril 20 mg tablet 20 mg PO DAILY Qty: 90 3RF propranolol 20 mg tablet 20 mg PO DAILY Qty: 90 3RF Glucosamine Chondroitin 1 tab PO DAILY Rx Instructions: 1500 mg Glucosamine, 1200 Chondroitin Vitamin B12 2,500 mcg 1 tab PO .1-2X WEEK cholecalciferol (vitamin D3) 50 mcg (2,000 unit) capsule 50 mcg PO DAILY Calcium Citrate + Zinc + Mag + Vit D. 1 cap PO DAILY Rx Instructions: 500mg Calcium, 80mg of Magnesium, 10mg Zinc, 20mcg of D3. gabapentin 300 mg capsule 300 mg PO .COMPLEX Qty: 90 2RF Rx Instructions: 1-2 PO Tid to begin at HS and titrate to pain relief Referrals: Ricardo Syed MD [Primary Care Provider] - Stand Alone Forms: Patient Portal/API
[2024-01-26] MEDS: OXYCODONE IR 5 MG TABLET PO (22:42)
[2024-01-27] MEDS: diazePAM 2 MG TABLET PO (00:23)
[2024-01-27] MEDS: OXYCODONE/APAP 5/325 PREPACK 1 BOTTLE MISC (00:23)
[2024-01-27 00:38] VITALS: BP 188/84; PULSE 62; RESP 15; O2SAT 97
== END 2024-01-27 00:40 | disposition home or self-care (01) ==
PROVIDERS: Emergency Provider Emergency Medicine; PCP Internal Medicine
DX: S32.019A Unspecified fracture of first lumbar vertebra, initial encounter for closed fracture (principal); W01.0XXA Fall on same level from slipping, tripping and stumbling without subsequent striking against object, initial encounter
CPT/HCPCS: 72131; 99283

== ENCOUNTER → 2024-03-09 14:05 | Outpatient (CLI) | payer MEDICARE, OTHER, SELFPAY ==
--- NOTE | 2024-03-09 14:06 | DI.RAD.S_ITS ---
PROCEDURE: XR LUMBAR SPINE 2-3V INDICATIONS: Follow-up L1 fracture TECHNIQUE: 5 views of the lumbar spine were acquired. COMPARISON: [facility], CT, CT LUMBAR SPINE WO CON, 01/26/2024, 22:42. [facility], CR, XR LUMBAR SPINE MIN 4V, 10/18/2023, 9:58. FINDINGS: Bones: 5 [id number] vertebrae are present. There is stable bony alignment. Redemonstration of anterior compression fracture of L1 with approximately 35% loss of the anterior vertebral body height. Moderate multilevel lumbar spondylosis. Moderate mid and lower lumbar facet arthropathy. No pars defects. Soft tissues: Overlying bowel gas pattern is normal. No suspicious soft tissue calcifications. IMPRESSION: Relatively stable appearance of anterior compression fracture of the L1 vertebral body with approximately 35% loss of the anterior vertebral body height. Multilevel spondylosis. No new acute compression fractures. Dictated by: Robin Leiva M.D. on 03/09/2024 at 15:23 Approved by: Robin Leiva M.D. on 03/09/2024 at 15:27
== END ==
PROVIDERS: PCP Internal Medicine; Referring Provider Physical Medicine & Rehabilitation; Visit Provider Physical Medicine & Rehabilitation
DX: S32.010A Wedge compression fracture of first lumbar vertebra, initial encounter for closed fracture (principal); M47.816 Spondylosis without myelopathy or radiculopathy, lumbar region; X58.XXXA Exposure to other specified factors, initial encounter
CPT/HCPCS: 72100

== ENCOUNTER → 2024-05-02 13:37 | Outpatient (CLI) | payer MEDICARE, OTHER, SELFPAY ==
--- NOTE | 2024-05-02 13:39 | DI.RAD.S_ITS ---
PROCEDURE: XR LUMBAR SPINE 2-3V INDICATIONS: L1 Compression Fx f/u TECHNIQUE: 3 views of the lumbar spine were acquired. COMPARISON: [facility], CR, XR LUMBAR SPINE 2-3V, 03/09/2024, 14:11. FINDINGS: Bones: 5 [id number] vertebrae are present. Similar appearance of compression fracture at L1 with approximately 65 percent height loss and no significant osseous retropulsion. Remainder of the spine demonstrates mild to moderate multilevel degenerative changes with osteophytosis, disc height loss and facet arthropathy. No suspicious bony lesions. Soft tissues: Overlying bowel gas pattern is normal. No suspicious soft tissue calcifications. IMPRESSION: 1. Similar appearance of compression fracture at L1 with approximately 65 percent height loss and no significant osseous retropulsion, best characterized on CT L-spine dated January 26, 2024. 2. Mild to moderate multilevel degenerative changes of the spine. Dictated by: Rojelio Sosa M.D. on 05/02/2024 at 17:00 Approved by: Rojelio Sosa M.D. on 05/02/2024 at 17:03
== END ==
PROVIDERS: PCP Internal Medicine; Referring Provider Physical Medicine & Rehabilitation; Visit Provider Physical Medicine & Rehabilitation
DX: S32.010A Wedge compression fracture of first lumbar vertebra, initial encounter for closed fracture (principal); M47.816 Spondylosis without myelopathy or radiculopathy, lumbar region
CPT/HCPCS: 72100

== ENCOUNTER → 2024-08-15 14:27 | Outpatient (CLI) | payer MEDICARE, OTHER, SELFPAY ==
--- NOTE | 2024-08-15 14:29 | DI.RAD.S_ITS ---
PROCEDURE: XR LUMBAR SPINE MIN 4V INDICATIONS: BACK PAIN TECHNIQUE: 5 views of the lumbar spine were acquired, including bilateral oblique views. COMPARISON: [facility], CR, XR LUMBAR SPINE 2-3V, 05/02/2024, 12:44. FINDINGS: Bones: Generalized decreased osseous mineralization noted. L1 wedge-shaped compression fracture remains unchanged Disc space narrowing hypertrophic facet joints and lower lumbar spine. Atherosclerotic calcification in the abdominal aorta noted without evidence of aneurysm. Soft tissues: Overlying bowel gas pattern is normal. No suspicious soft tissue calcifications. Oblique images: No pars defects. IMPRESSION: Stable osteopenic L1 compression fracture Approved by: Gary Goodwin M.D. on 08/15/2024 at 18:23
== END ==
PROVIDERS: PCP Internal Medicine; Referring Provider Physical Medicine & Rehabilitation; Visit Provider Physical Medicine & Rehabilitation
DX: S32.010A Wedge compression fracture of first lumbar vertebra, initial encounter for closed fracture (principal); M47.816 Spondylosis without myelopathy or radiculopathy, lumbar region
CPT/HCPCS: 72110

== ENCOUNTER 2024-11-16 13:46 | Outpatient (CLI) | payer MEDICARE, OTHER, SELFPAY ==
[2024-11-16] VITALS (10 sets, daily range): BP systolic 154–244; BP diastolic 64–107; PULSE 49–62; RESP 14–21; TEMP 36.8; O2SAT 98–100
--- NOTE | 2024-11-16 14:44 | DI.RAD.S_ITS ---
PROCEDURE: PAIN L INTERLAMINAR/CAUDAL INJ INDICATIONS: STENOSIS COMPARISON: None. FINDINGS/IMPRESSION: Fluoroscopic spot filming was performed to verify placement of spinal needles at the L4-5 level(s), as labeled on the films. Appropriate location(s) of the needle tip(s) was confirmed by injection of iodinated contrast. Dictated by: Franco Luis M.D. on 11/17/2024 at 14:46 Approved by: Franco Luis M.D. on 11/17/2024 at 14:46
[2024-11-16] MEDS: MIDAZOLAM 2 MG/2 ML VIAL IV (15:04)
[2024-11-16] MEDS: iopamidoL 15 ML VIAL 3 ML INJ (15:11)
[2024-11-16] MEDS: BUPIVACAINE 0.25% (PF) VIAL 2 ML INJ (15:12)
[2024-11-16] MEDS: BETAMETHASONE 30 MG/5 ML MDV 12 MG INJ (15:12)
[2024-11-16] MEDS: DEXAMETHASONE 10 MG/ML VIAL INJ (15:12)
--- NOTE | 2024-11-16 15:21 | P.PCN_ITS ---
Date/Time/Diagnoses Date of procedure: 11/16/24 Time of procedure: 15:22 Pre-procedure diagnosis: 1. HNP WITH RADICULAR FEATURES, 2. MULTILEVEL CENTRAL STENOSIS, Post-procedure diagnosis: same Procedure Notes Procedure: 1. FLUOROSCOPICALLY GUIDED CONTRAST CONTROLLED INTERLAMINAR EPIDURAL STEROID INJECTION -L4/5 Indications: Rafaela is referred by Dr. Syed for treatment of Bilateral Foraminal Stenosis R>L LE symptoms. Physician: Freeman Rios Total Fluoroscopy time (seconds): 7 Total sedation minutes: 14 Complications: none Procedure in detail & Post-procedure care: FINDINGS Multilevel Central Spinal Stenosis with Nerve Root Compression DESCRIPTION OF PROCEDURE Fluoroscopically guided, contrast-controlled L4/5 translaminar epidural steroid injection. Following review of allergy and review of potential side effects and complications, including, but not necessarily limited to, infection, allergic reaction, local tissue breakdown, temporary as well as permanent nerve injury, paralysis, stroke and possible , the patient indicated that the patient understood and agreed to proceed. An informed consent document was signed by the patient, witnessed by a nurse, and placed in the patient's chart. Additionally, other treatment options including modalities, medications, and physical therapy were reviewed with the patient. After review of previous anaesthesic history and IV conscious sedation the patient was deemed safe to proceed with today?s procedure with IV conscious sedation as ASA class II designation. Safety time-out was performed to confirm patient ID, procedure to be performed and site of procedure. IV sedation was accomplished with a combination of 2mg of Versed was administered by the RN after DO order, titrated to patient comfort during the course of the procedure while the patient remained responsive to all verbal commands In the prone position, following sterile prep and drape of the lumbar region, the L4/5 translaminar space was identified fluoroscopically. The skin was anesthetized via a 25-gauge, 1.5inch needle with 1% lidocaine solution. At this point, a 22-gauge short bevel spinal needle was atraumatically introduced and a dvanced under fluoroscopic guidance into the region of the L4/5 translaminar space. Depth was confirmed on lateral view. Radiological data, including multiple fluoroscopic views of the lumbar spine, reveal a spinal needle at the L4/5 translaminar space. Lateral views then show placement of the needle in the epidural space. Subsequent views show contrast material flowing superiorly and inferiorly in the epidural space. No vascular or intrathecal uptake is observed. At this point, using loss of resistance technique with saline and air, the epidural space was entered. This was confirmed following negative aspiration with injection of approximately 1.5cc of Isovue 200, showing excellent epidural flow without vascular or intrathecal uptake. At this point, 1cc of 1% lidocaine solution combined with 3cc or 10mg of dexamethasone and 12mg betamethasone was injected without incident. The patient tolerated the procedure well without signs or symptoms of complications prior to transfer to the recovery area continued monitoring without incident. The patient was then transferred to the recovery area where they were observed for an appropriate period of time after the injection. The patient reported a VAS score of 6 prior to the procedure and a post- procedure VAS of 0. POST OP INSTRUCTIONS The patient was provided a Pain Log to continue to record their response to the target-specific procedure prior to follow-up visit with their referring physician. Additionally, specific post-injection care instructions and a contact number to our office were provided if concerns arise regarding possible complications associated with the procedure are suspected.
== END 2024-11-16 15:35 | disposition home or self-care (01) ==
PROVIDERS: PCP Internal Medicine; Referring Provider Physical Medicine & Rehabilitation; Visit Provider Physical Medicine & Rehabilitation
DX: M51.16 Intervertebral disc disorders with radiculopathy, lumbar region (principal); M48.061 Spinal stenosis, lumbar region without neurogenic claudication
CPT/HCPCS: 62323; 99152; J0702; J1100; J2250; J3490

== ENCOUNTER → 2025-01-02 10:31 | Outpatient (CLI) | payer MEDICARE, OTHER, SELFPAY ==
[2025-01-02 11:41] LABS: Alanine Aminotransferase 20 IU/L (<35); Albumin 4.4 g/dL (3.5-5.0); Albumin Globulin Ratio 2.1 (1.0-2.8); Alkaline Phosphatase 48 U/L (38-126); Aspartate Aminotransferase 21 IU/L (14-36); BUN Creatinine Ratio 22.2 (6-22); Bilirubin Total 1.1 mg/dL (0.2-1.3); Blood Urea Nitrogen 24 mg/dL (7-17); Calcium 9.7 mg/dL (8.4-10.2); Carbon Dioxide 23 mmol/L (22-32); Chloride 106 mmol/L (98-107); Cholesterol 199 mg/dL (140-199); Estimated Glomerular Filt Rate 52 mL/min (>60); Globulin 2.1 g/dL (1.7-4.1); Glucose 113 mg/dL (80-110); HDL Cholesterol 65 mg/dL (40-60); HEMOLYSIS < 15 (0-50); LDL Cholesterol Calculated 113 mg/dL (<100); Potassium 4.7 mmol/L (3.4-5.1); Sodium 138 mmol/L (137-145); Total Protein 6.5 g/dL (6.3-8.2); Triglycerides 103 mg/dL (35-150)
== END ==
PROVIDERS: PCP Internal Medicine; Referring Provider Internal Medicine; Visit Provider Internal Medicine
DX: I10 Essential (primary) hypertension (principal); Z13.6 Encounter for screening for cardiovascular disorders
CPT/HCPCS: 36415; 80053; 80061